=== PATIENT | male | born 1965 | race Caucasian/White ===

== ENCOUNTER 2024-05-22 08:20 | Day surgery (SDC) | payer BC ==
[~2024-05-22] VITALS: Ht 190.5 cm; Wt 114.1 kg
[~2024-05-22 08:20] MED LIST: LISINOPRIL-HCT1 EAC1 PO; Lactated Ringer's 1,000 ML IV ONE; METO50ER PO; MOBIC15 MG PO; propofoL 50 ML IV ONE
[2024-05-22] MEDS ORDERED: BERBERINE500 MG (08:40)
[2024-05-22] MEDS ORDERED: B-121000 MC6 (08:40)
[2024-05-22] MEDS ORDERED: D3 (08:40)
[2024-05-22] MEDS ORDERED: RED YEAST RICE (08:41)
[2024-05-22] MEDS ORDERED: Lactated Ringer's 1,000 ML IV ONE (09:15)
--- NOTE | 2024-05-22 09:40 | NUR ---
05/22/24 0940 Rylee Robbins PT. DENIES PAIN.
[2024-05-22 10:43] VITALS: BP 113/76
== END 2024-05-22 10:35 | disposition home or self-care (01) ==
LOC: ORSCSDS 08:20
PROVIDERS: Surgery
PROC: 0DBM8ZX Excision of Descending Colon, Via Natural or Artificial Opening Endoscopic, Diagnostic (ICD-10-PCS; principal; 2024-05-22 09:30)
PROC: 0DBN8ZX Excision of Sigmoid Colon, Via Natural or Artificial Opening Endoscopic, Diagnostic (ICD-10-PCS; principal; 2024-05-22 09:30)
PROC: 0DBP8ZX Excision of Rectum, Via Natural or Artificial Opening Endoscopic, Diagnostic (ICD-10-PCS; principal; 2024-05-22 09:30)
PROC: 0DBH8ZX Excision of Cecum, Via Natural or Artificial Opening Endoscopic, Diagnostic (ICD-10-PCS; principal; 2024-05-22 09:30)
DX: Z12.11 Encounter for screening for malignant neoplasm of colon (principal); Z86.0100 Personal history of colon polyps, unspecified; K63.5 Polyp of colon; K62.1 Rectal polyp; K57.30 Diverticulosis of large intestine without perforation or abscess without bleeding; I10 Essential (primary) hypertension; Z79.899 Other long term (current) drug therapy
CPT/HCPCS: 88305; J2704; J7120